=== PATIENT | female | born 1985 ===

== ENCOUNTER 2022-05-14 19:29 | Emergency (ER) | payer OTHER ==
--- NOTE | 2022-05-14 19:50 | RAD REPORT ---
EXAM DESCRIPTION: CT - Ct Stroke Brain Wo Cont - 05/14/2022 7:41 pm CLINICAL HISTORY: Left-sided weakness COMPARISON: 2014 TECHNIQUE: Computed axial tomography of the head was obtained. All CT scans are performed using dose optimization technique as appropriate and may include automated exposure control or mA/KV adjustment according to patient size. FINDINGS: An intracranial bleed is not seen . The ventricles are normal in caliber. No extra-axial fluid collection is noted. Cerebellar tonsillar ectopia Fluid within the sinuses/ mastoids is not seen. IMPRESSION: No acute intracranial abnormality is seen. If patient's symptoms persist MRI of the bra in would be recommended. Hunter Page of the emergency room was notified at 7:45 p.m. May 14, 2022
--- NOTE | 2022-05-14 19:58 | EDPHYS ---
Physician Documentation [facility] Name: Angel Alexander Age: 37 yrs Sex: Female : 1985 Arrival Date: 05/14/2022 Time: 19:30 Bed 13 Private MD: ED Physician Rusty Macedo HPI: 05/15 01:31 This 37 yrs old Female presents to ER via Ambulatory with complaints of Facial Droop, kdr Headache. 01:31 The patient presents to the emergency department with weakness of the left side of the kdr face, that is moderate, forehead, left cheek, left eye and left jaw. Onset: The symptoms/episode began/occurred gradually, 1 week(s) ago. Context: occurred at home, occurred while the patient was at rest. Associated signs and symptoms: The patient has no apparent associated signs or symptoms. Associated signs and symptoms: Pertinent positives: headache. Severity of symptoms: At their worst the symptoms were mild in the emergency department the symptoms are unchanged. Patient's baseline: Neuro: alert and fully oriented, Motor: no deficits, Ambulation: walks without assistance, Speech: normal, The patient has a previous history of. Current symptoms: paralysis or paresis, of the Left face and forehead. The patient has not experienced similar symptoms in the past. The patient has not recently seen a physician. LENS BLOCKER: 05/14 19:50 2, Living 2 aa9 Historical: - Allergies: 19:48 Amoxicillin; aa9 - Home Meds: 19:48 None [Active]; aa9 - PMHx: 19:48 None; aa9 - PSHx: 19:48 None; aa9 - Immunization history:: Client reports having NOT received the Covid vaccine. ROS: 05/15 01:31 Constitutional: Negative for fever, chills, and weight loss, Eyes: Negative for injury, kdr pain, redness, and discharge, Neck: Negative for injury, pain, and swelling, Cardiovascular: Negative for chest pain, palpitations, and edema, Respiratory: Negative for shortness of breath, cough, wheezing, and pleuritic chest pain, Abdomen/GI: Negative for abdominal pain, nausea, vomiting, diarrhea, and constipation, Back: Negative for injury and pain, : Negative for injury, bleeding, discharge, and swelling, MS/Extremity: Negative for injury and deformity, Skin: Negative for injury, rash, and discoloration, Psych: Negative for depression, anxiety, suicide ideation, homicidal ideation, and hallucinations, Allergy/Immunology: Negative for hives, rash, and allergies, Endocrine: Negative for neck swelling, polydipsia, polyuria, polyphagia, and marked weight changes, Hematologic/Lymphatic: Negative for swollen nodes, abnormal bleeding, and unusual bruising. 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 Exam: 01:31 Constitutional: This is a well developed, well nourished patient who is awake, alert, kdr and in no acute distress. Head/Face: Normocephalic, atraumatic. 01:31 Neuro: Cranial nerves: facial droop noted on left, with forehead involved. Vital Signs: 05/14 19:50 BP 128 / 67; Pulse 103; Resp 16 S; Temp 98.5(O); Pulse Ox 100% on R/A; Weight 90.72 kg aa9 (R); Height 5 ft. 4 in. (162.56 cm) (R); Pain 2/10; 20:33 BP 128 / 67; Pulse 103; Resp 16; Pulse Ox 100% ; ja4 19:50 Body Mass Index 34.33 (90.72 kg, 162.56 cm) aa9 NIH Stroke Scale Scores: 20:33 NIHSS Score: 2 ja4 MDM: 19:57 Patient medically screened. [facility] 05/15 01:31 Data reviewed: vital signs, nurses notes, radiologic studies. Counseling: I had a kdr detailed discussion with the patient and/or guardian regarding: the historical points, exam findings, and any diagnostic results supporting the discharge/admit diagnosis, radiology results, the need for outpatient follow up. 05/14 19:36 Order name: CT Stroke Brain w/o Contrast 05/14 19:36 Order name: Stroke CXR 1 View 05/14 19:36 Order name: Accucheck 05/14 19:36 Order name: Cardiac monitoring 05/14 19:36 Order name: EKG - Nurse/Tech 05/14 19:36 Order name: IV Saline Lock 05/14 19:36 Order name: Labs collected and sent 05/14 19:36 Order name: NPO 05/14 19:36 Order name: O2 Per Protocol as6 05/14 19:36 Order name: O2 Sat Monitoring; Complete Time: 19:55 as6 Administered Medications: No medications were administered Disposition Summary: 05/14/22 19:57 Discharge Ordered Location: Home kdr Problem: new kdr Symptoms: are unchanged kdr Condition: Stable kdr Diagnosis - Ruiz's palsy kdr Followup: kdr - With: Private Physician - When: 2 - 3 days - Reason: If symptoms return, Further diagnostic work-up, Recheck today's complaints, Continuance of care, Re-evaluation by your physician Discharge Instructions: - Discharge Summary Sheet kdr - Ruiz Palsy, Adult kdr Forms: - Medication Reconciliation Form kdr - Thank You Letter kdr Prescriptions: - Prednisone 20 mg Oral Tablet - take 1 tablet by ORAL route once daily for 5 days RX: 2 - Take two tablets per kdr day days 5 \T\ 6, one tablet per day day 7 \T\ 8. Then take 1/2 tablet day 9 \T\ 10. Dispense quantity sufficient.; 5 tablet; Refills: 0, Product Selection Permitted - Prednisone 20 mg Oral Tablet - take 3 tablets by ORAL route once daily for 4 days RX: 1 - take this kdr prescription first then Rx: 2 second; 12 tablet; Refills: 0, Product Selection Permitted NIH Stroke Scale - NIH Stroke Score Date: 05/14/2022 Time: 20:33 Total Score = 2 1a. Level of Consciousness (LOC) - 0(Alert) 1b. Level of Consciousness (LOC) (Month \T\ Age) - 0(Both) 1c. LOC Commands (Open \T\ Closes Eyes/Supervisor Wet Pour) - 0(Both) 2. Best Gaze (Lateral Gaze Paresis) - 0(Normal) 3. Visual Field Loss - 0(No visual loss) 4. Facial Palsy - 2(Partial paralysis) 5a. Left Arm: Motor (10-second hold) - 0(No drift) 5b. Right Arm: Motor (10-second hold) - 0(No drift) 6a. Left Leg: Motor (5-second hold - always test supine) - 0(No drift) 6b. Right Leg: Motor (5-second hold - always test supine) - 0(No drift) 7. Limb Ataxia (finger/nose \T\ heel/blair - test with eyes open) - 0(Absent) 8. Sensory Loss (pinprick arms/legs/face) - 0(Normal) 9. Best Language: Aphasia (description/naming/reading) - 0(No aphasia) 10. Dysarthria (speech clarity - read or repeat words) - 0(Normal) 11. Extinction and Inattention (visual/tactile/auditory/spatial/personal) - 0(No abnormality) Initials: ja4 Signatures: Dispatcher [employer] EDRusty Love MD MD kdr Slawson, Ashby, RN RN as6 Jo Ann Mohr, BRENNON RN aa9 Corrections: (The following items were deleted from the chart) 05/14 19:48 19:48 Allergies: No Known Allergies; aa9 aa9 19:55 19:36 Stroke Swallow Screen ordered. as6 mw2
--- NOTE | 2022-05-14 19:58 | ER ---
Nurse's Notes [facility] Name: Angel Alexander Age: 37 yrs Sex: Female : 1985 Arrival Date: 05/14/2022 Time: 19:30 Bed 13 Private MD: Diagnosis: Ruiz's palsy Presentation: 05/14 19:46 Chief complaint: Patient states: left facial side droop. Coronavirus screen: Vaccine aa9 status: Patient reports being unvaccinated. Ebola Screen: No symptoms or risks identified at this time. An acute neurological deficit is present. The patients blood glucose was checked before arriving to the hospital and was found to be normal. Onset of symptoms was May 14, 2022 at 09:00. 19:46 Method Of Arrival: Ambulatory aa9 19:55 Initial Sepsis Screen: Does the patient meet any 2 criteria? No. Patient's initial aa9 sepsis screen is negative. Does the patient have a suspected source of infection? No. Patient's initial sepsis screen is negative. Risk Assessment: Do you want to hurt yourself or someone else? Patient reports no desire to harm self or others. 19:55 Acuity: KIMBERLY 2 aa9 Triage Assessment: 19:49 The onset of the patients symptoms was more than six hours ago. General: Appears aa9 uncomfortable, Behavior is cooperative, quiet. Pain: Complains of pain in occipital area and base of the skull. Neuro: Level of Consciousness is awake, alert, obeys commands, Oriented to person, place, time, situation, Director Of Reimbursement are equal bilaterally Speech is slurred, Facial droop on left, Reports headache in left. FIELD SERVICE SPECIALIST: 19:50 2, Living 2 aa9 Stroke Activation: Physician: Stroke Attending; Name: ; Notified At: ; Arrived At: Physician: Chief Stroke Resident; Name: ; Notified At: ; Arrived At: Physician: Stroke Resident; Name: ; Notified At: ; Arrived At: Physician: ED Attending; Name: taya; Notified At: ; Arrived At: Physician: ED Resident; Name: ; Notified At: ; Arrived At: Historical: - Allergies: 19:48 Amoxicillin; aa9 - Home Meds: 19:48 None [Active]; aa9 - PMHx: 19:48 None; aa9 - PSHx: 19:48 None; aa9 - Immunization history:: Client reports having NOT received the Covid vaccine. Screenin:33 Abuse screen: Denies threats or abuse. Nutritional screening: No deficits noted. ja4 Tuberculosis screening: No symptoms or risk factors identified. Assessment: 20:33 General: Appears in no apparent distress. Musculoskeletal: right facial droop. ja4 Vital Signs: 19:50 BP 128 / 67; Pulse 103; Resp 16 S; Temp 98.5(O); Pulse Ox 100% on R/A; Weight 90.72 kg aa9 (R); Height 5 ft. 4 in. (162.56 cm) (R); Pain 2/10; 20:33 BP 128 / 67; Pulse 103; Resp 16; Pulse Ox 100% ; ja4 19:50 Body Mass Index 34.33 (90.72 kg, 162.56 cm) aa9 NIH Stroke Scale Scores: 20:33 NIHSS Score: 2 ja4 ED Course: 19:30 Patient arrived in ED. ag3 19:42 Rusty Macedo MD is Attending Physician. kdr 19:43 CT Stroke Brain w/o Contrast In Process Unspecified. EDMS 19:56 Triage completed. aa9 19:56 Arm band placed on. aa9 20:19 Stroke CXR 1 View In Process Unspecified. EDMS 20:33 Bed in low position. Call light in reach. Adult w/ patient. ja4 20:33 No provider procedures requiring assistance completed. ja4 Administered Medications: No medications were administered Medication: 20:33 VIS not applicable for this client. ja4 Outcome: 19:57 Discharge ordered by . kdr 20:33 Discharged to home ambulatory. ja4 20:33 Condition: good 20:33 Discharge instructions given to patient, Instructed on discharge instructions, follow up and referral plans. medication usage. 20:36 Patient left the ED. ja4 NIH Stroke Scale - NIH Stroke Score Date: 05/14/2022 Time: 20:33 Total Score = 2 1a. Level of Consciousness (LOC) - 0(Alert) 1b. Level of Consciousness (LOC) (Month \T\ Age) - 0(Both) 1c. LOC Commands (Open \T\ Closes Eyes/Construction Area Manager) - 0(Both) 2. Best Gaze (Lateral Gaze Paresis) - 0(Normal) 3. Visual Field Loss - 0(No visual loss) 4. Facial Palsy - 2(Partial paralysis) 5a. Left Arm: Motor (10-second hold) - 0(No drift) 5b. Right Arm: Motor (10-second hold) - 0(No drift) 6a. Left Leg: Motor (5-second hold - always test supine) - 0(No drift) 6b. Right Leg: Motor (5-second hold - always test supine) - 0(No drift) 7. Limb Ataxia (finger/nose \T\ heel/blair - test with eyes open) - 0(Absent) 8. Sensory Loss (pinprick arms/legs/face) - 0(Normal) 9. Best Language: Aphasia (description/naming/reading) - 0(No aphasia) 10. Dysarthria (speech clarity - read or repeat words) - 0(Normal) 11. Extinction and Inattention (visual/tactile/auditory/spatial/personal) - 0(No abnormality) Initials: alex Signatures: Dispatcher [employer] EDMS Rusty Macedo MD MD [facility] Annette Garcia 3 Jo Ann Mohr RN RN [id number] Juan Rodriguez RN RN ja4 Corrections: (The following items were deleted from the chart) 19:48 19:48 Allergies: No Known Allergies; carine aa9
--- NOTE | 2022-05-14 20:31 | RAD REPORT ---
EXAM DESCRIPTION: Yevgeniy Single View05/14/2022 8:17 pm CLINICAL HISTORY: Facial droop COMPARISON: 2014 FINDINGS: The lungs appear clear of acute infiltrate. The heart is normal size IMPRESSION: No acute abnormalities displayed
[2022-05-14 23:27] VITALS: BP 128/67; TEMP 98.5; O2SAT 100
== END 2022-05-14 20:36 | disposition home or self-care (01) ==
LOC: ER 19:29
DX: G51.0 Bell's palsy (principal); Z88.1 Allergy status to other antibiotic agents
CPT/HCPCS: 70450; 71045; 99283